=== PATIENT | female | born 2000 | race Caucasian/White ===

== ENCOUNTER 2019-06-03 10:40 | Emergency (ER) | payer OTHER ==
[~2019-06-03] VITALS: Ht 160 cm; Wt 62.1 kg
[2019-06-03] MEDS ORDERED: bcp (10:50)
[2019-06-03] MEDS ORDERED: NS 1,000 ML IV ONE (11:30)
[2019-06-03] MEDS ORDERED: KETOROLAC 30 MG/ML VIAL (J1885) IV ONE (11:30)
[2019-06-03 12:12] LABS: APPEARANCE, URINE HAZY (CLEAR); BACTERIA, URINE AUTO NEGATIVE (NEGATIVE); BILIRUBIN, URINE AUTO NEGATIVE (NEGATIVE); BLOOD, URINE BLOOD 1+ (NEGATIVE); COLOR, URINE YELLOW (YELLOW); GLUCOSE, URINE (UA) AUTO NEGATIVE (NEGATIVE); KETONE, URINE AUTO TRACE mg/dL (NEGATIVE); LEUKOCYTE ESTERASE, URINE AUTO TRACE (NEGATIVE); MUCUS, URINE SMALL (NEGATIVE); NITRITE, URINE AUTO NEGATIVE (NEGATIVE); PROTEIN, URINE AUTO NEGATIVE (NEGATIVE); RBC, URINE AUTO 11 /HPF (0-3); SPECIFIC GRAVITY URINE AUTO 1.018 (1.002-1.035); SQUAMOUS EPITHELIAL CELL UR AU 6 /HPF (0-6); UROBILINOGEN, URINE AUTO 0.2 mg/dL (0.0-2.0); WBC, URINE AUTO 13 /HPF (0-3)
[2019-06-03 12:35] LABS: BASO # 0.1 10^3/uL (0.0-0.2); BASO % 0.3 % (0.0-1.0); EOS % 0.1 % (0.0-3.0); HEMATOCRIT 38.2 % (36.0-47.0); HEMOGLOBIN 13.1 g/dl (12.0-15.5); LYMPH # 1.5 10^3/uL (1.5-5.0); LYMPH % 10.1 % (24.0-44.0); MEAN CORPUSCULAR HEMOGLOBIN 28.5 pg (27.0-33.0); MEAN CORPUSCULAR HGB CONC 34.3 g/dl (32.0-36.5); MEAN CORPUSCULAR VOLUME 83.2 fl (80.0-96.0); MONO # 1.5 10^3/uL (0.0-0.8); MONO % 10.1 % (0.0-5.0); NEUTROPHILS # 11.9 10^3/uL (1.5-8.5); NEUTROPHILS % 79.1 % (36.0-66.0); PLATELET COUNT, AUTOMATED 257 10^3/uL (150-450); RED BLOOD COUNT 4.59 10^6/uL (4.00-5.40)
[2019-06-03 12:55] LABS: ALBUMIN 3.4 GM/DL (3.2-5.2); ALT/SGPT 20 U/L (12-78); AMYLASE 62 U/L (25-115); BILIRUBIN,DIRECT 0.1 MG/DL (0.0-0.2); BILIRUBIN,TOTAL 0.4 MG/DL (0.2-1.0); BLOOD UREA NITROGEN 13 MG/DL (7-18); C REACTIVE PROTEIN QUANTITATIV 2.59 MG/DL (0.00-0.30); CALCIUM LEVEL 8.5 MG/DL (8.5-10.1); CARBON DIOXIDE LEVEL 23 MEQ/L (21-32); CHLORIDE LEVEL 107 MEQ/L (98-107); CREATININE FOR GFR 0.85 MG/DL (0.55-1.30); GLUCOSE, FASTING 83 MG/DL (70-100); POTASSIUM SERUM 3.5 MEQ/L (3.5-5.1); SODIUM LEVEL 138 MEQ/L (136-145); TOTAL PROTEIN 7.5 GM/DL (6.4-8.2)
[2019-06-03 13:01] LABS: INFLUENZA A AMPLIFICATION NEGATIVE (NEGATIVE); INFLUENZA B AMPLIFICATION NEGATIVE (NEGATIVE)
[2019-06-03] MEDS ORDERED: PROHANCE 279.3MG/ML 15ML VIAL (A9576) As Ordered ONE (13:25)
[2019-06-03] MEDS ORDERED: ISOVUE-370 76% 100ML VIAL (Q9967) As Ordered ONE (13:53)
--- NOTE | 2019-06-03 14:42 | REP ---
Clinical: Fever with lumbosacral tenderness. Technique: Pre and postcontrast MRI of the lumbosacral spine using 12 ml of ProHance gadolinium based intravenous contrast material. Sequencing includes sagittal T1, T2, STIR, postcontrast T1, and axial T1, T2, and postcontrast T1 images. Findings: The vertebral bodies are normal in contour, size, and signal intensity without evidence for vertebral body pathology. Alignment and lordosis is maintained. With the exception of the L5-S1 disc, the remainder of the visualized intervertebral discs are normal in height and signal intensity. No enhancing abnormalities are appreciated to suggest diskitis or further infectious/inflammatory process. The spinal canal is patent and the visualized cord and nerve roots are normal in appearance and signal intensity without enhancing abnormality. There is evidence for loss of T2 signal of the L5-L1 disc with decreased height and a small/moderate posterior broad-based disc protrusion which mildly encroaches on the bilateral lateral recesses and causes minimal effacement of the anterior margin of the thecal sac. The neural foramen demonstrate associated mild narrowing but without evidence for impingement of the exiting nerve roots. Impression: 1. Moderate spondylosis at the L5-S1 level as described above. 2. Otherwise normal pre and postcontrast lumbosacral spine MRI. Electronically Signed by Ascencion Reid MD 06/03/2019 02:33 P
[2019-06-03] MEDS ORDERED: IBUP80TA PO (14:44)
[2019-06-03] MEDS ORDERED: NORCO 5/325MG TABLET (BULK FOR ED) PO ONE (14:45)
[2019-06-03] MEDS ORDERED: SULF1TAB72 PO (14:49)
[2019-06-03 14:52] VITALS: BP 122/74
== END 2019-06-03 15:01 | disposition home or self-care (01) ==
LOC: M ED 10:40
DX: M47.896 Other spondylosis, lumbar region (principal); N39.0 Urinary tract infection, site not specified; M54.5 Low back pain; R50.9 Fever, unspecified; F17.210 Nicotine dependence, cigarettes, uncomplicated; Z88.0 Allergy status to penicillin
CPT/HCPCS: 36415; 72158; 80048; 80076; 81001; 82150; 83605; 84702; 85025; 86140; 87040; 87502; 96374; 99284; A9576; J1885

== ENCOUNTER → 2020-07-23 | Outpatient (CLI) | payer OTHER ==
[~2020-07-23] MED LIST: IBUP80TA PO; SULF400T14 PO; bcp
[2020-07-23 17:03] LABS: BLOOD UREA NITROGEN 12 MG/DL (7-18); CREATININE FOR GFR 0.87 MG/DL (0.55-1.30)
== END ==
LOC: M LAB 15:50
PROVIDERS: ATTEND Physical Medicine & Rehabilitation
DX: M54.16 Radiculopathy, lumbar region (principal)

== ENCOUNTER 2020-09-09 10:23 | Emergency (ER) | payer OTHER ==
[~2020-09-09] VITALS: Ht 149.9 cm; Wt 72.3 kg
[2020-09-09] MEDS ORDERED: MELO15TA28 PO (10:30)
[2020-09-09] MEDS ORDERED: GABA-843 PO (10:30)
[2020-09-09] MEDS ORDERED: NS 1,000 ML IV ONE (11:15)
[2020-09-09] MEDS ORDERED: ONDANSETRON 4MG/2ML VIAL IV ONE (11:15)
[2020-09-09] MEDS ORDERED: GI COCKTAIL 50ML BTL(HYOSCYAMINE/MAALOX/LIDOCAINE VISCOUS)(1:3:1) PO ONE (11:15)
[2020-09-09 11:18] LABS: BASO % 0.3 % (0.0-1.0); EOS % 0.1 % (0.0-3.0); HEMATOCRIT 43.4 % (36.0-47.0); HEMOGLOBIN 14.3 g/dl (12.0-15.5); LYMPH # 1.5 10^3/uL (1.5-5.0); LYMPH % 12.9 % (24.0-44.0); MEAN CORPUSCULAR HEMOGLOBIN 27.6 pg (27.0-33.0); MEAN CORPUSCULAR HGB CONC 32.9 g/dl (32.0-36.5); MEAN CORPUSCULAR VOLUME 83.8 fl (80.0-96.0); MONO # 0.7 10^3/uL (0.0-0.8); MONO % 5.5 % (0.0-5.0); NEUTROPHILS # 9.5 10^3/uL (1.5-8.5); NEUTROPHILS % 80.9 % (36.0-66.0); PLATELET COUNT, AUTOMATED 382 10^3/uL (150-450); RED BLOOD COUNT 5.18 10^6/uL (4.00-5.40); WHITE BLOOD COUNT 11.7 10^3/uL (4.0-10.0)
[2020-09-09 11:56] LABS: HCG, SERUM QUALITATIVE NEGATIVE (NEGATIVE)
[2020-09-09 12:00] LABS: ALBUMIN 4.4 GM/DL (3.2-5.2); ALT/SGPT 24 U/L (12-78); BILIRUBIN,DIRECT < 0.1 MG/DL (0.0-0.2); BILIRUBIN,TOTAL 0.3 MG/DL (0.2-1.0); BLOOD UREA NITROGEN 10 MG/DL (7-18); CALCIUM LEVEL 9.9 MG/DL (8.5-10.1); CARBON DIOXIDE LEVEL 27 MEQ/L (21-32); CHLORIDE LEVEL 107 MEQ/L (98-107); GLOMERULAR FILTRATION RATE > 60.0 (>60); GLUCOSE, FASTING 90 MG/DL (70-100); LIPASE 51 U/L (73-393); POTASSIUM SERUM 3.9 MEQ/L (3.5-5.1); SODIUM LEVEL 140 MEQ/L (136-145); TOTAL PROTEIN 8.2 GM/DL (6.4-8.2)
[2020-09-09] MEDS ORDERED: ISOVUE-370 76% 100ML VIAL As Ordered ONE (12:03)
[2020-09-09 12:34] LABS: CK-MB VALUE MASS < 1.0 NG/ML (<3.6); CPK CREATINE PHOSPHOKINASE 91 U/L (26-192); TROPONIN I < 0.02 NG/ML (< 0.10)
--- NOTE | 2020-09-09 12:38 | REP ---
INDICATION: abd pain with leukocytosis, n/v/d r/o infectious process COMPARISON: None. TECHNIQUE: CT Scan of the abdomen and pelvis was performed with intravenous administration of 100 cc of Isovue 370, and oral contrast. FINDINGS: Lung bases: No infiltrates seen. There is a small amount of pericardial fluid anteriorly and inferiorly on the right. Liver: Normal Gallbladder: Unremarkable. Spleen: Normal. Adrenals: Normal. Pancreas: Normal. Kidneys: Normal. Small and large bowel: Unremarkable. No obstruction. Free fluid: There is a small amount of free fluid in the pelvis. Abdominal aorta: No aneurysm or dissection. Adenopathy: None. Appendix: Not inflamed. Osseous structures: Unremarkable. Pelvis: No mass. There is a tiny umbilical hernia containing noninflamed fat. IMPRESSION: Small amount of pericardial fluid anteriorly and inferiorly on the right. Small amount of free fluid in the pelvis. No bowel abnormality. No bowel obstruction. Normal appendix. No pelvic mass. <Electronically signed by Tucker Villegas > 09/09/20 [id number]
--- NOTE | 2020-09-09 12:44 | REP ---
INDICATION: chest pain. COMPARISON: No comparison study. TECHNIQUE: Two views.. FINDINGS: The lungs are well inflated and free of infiltrate. The pleural angles are sharp. The heart size is normal. Pulmonary vasculature is not increased. No significant bony abnormality is seen. There is a mild pectus excavatum. IMPRESSION: Negative chest x-ray. <Electronically signed by Duncan Bagley > 09/09/20 [id number]
[2020-09-09] MEDS ORDERED: ONDA4TAB6 PO (14:23)
[2020-09-09] MEDS ORDERED: OMEP-218 PO (14:23)
[2020-09-09 14:38] VITALS: BP 121/88
--- NOTE | 2020-09-09 20:57 | ECGEPIP ---
[facility] - ED Test Date: 2020-09-09 Pat Name: DENISE GALARZA Department: Room: - Gender: Female Administrative Job Titles: BRUCE : 2000 Requested By: DANA MCCLOUD Order Number: [id number] Reading MD: Kate Bustillos Measurements Intervals [place] Rate: 72 P: 54 TX: 169 QRS: 79 QRSD: 90 T: 42 QT: 372 QTc: 408 Interpretive Statements SINUS RHYTHM WITH SINUS ARRHYTHMIA NO PRIOR Electronically Signed on 09-09-2020 20:57:14 EST by Kate Bustillos
== END 2020-09-09 14:40 | disposition home or self-care (01) ==
LOC: M ED 10:23
DX: K21.9 Gastro-esophageal reflux disease without esophagitis (principal); R11.2 Nausea with vomiting, unspecified; R07.9 Chest pain, unspecified; Z88.0 Allergy status to penicillin; Z79.899 Other long term (current) drug therapy
CPT/HCPCS: 71046; 74177; 80048; 80076; 81001; 82550; 82553; 83690; 84484; 84703; 85025; 93005; 96361; 96374; 99284; J2405; Q9967

== ENCOUNTER 2023-04-08 03:25 | Emergency (ER) | payer OTHER ==
[~2023-04-08] VITALS: Ht 160 cm; Wt 63.9 kg
[~2023-04-08 03:25] MED LIST changes: +GABA-282 PO; +MELO15TA28 PO; +OMEP-173 PO; +ONDA4TAB6 PO
[2023-04-08] MEDS ORDERED: MIDOTAB PO (03:30)
[2023-04-08] MEDS ORDERED: ONDANSETRON 4MG 2ML VIAL IV ONE (06:40)
[2023-04-08] MEDS ORDERED: NS 1,000 ML IV ONE (06:40)
[2023-04-08 07:04] LABS: BASO # 0.1 10^3/uL (0.0-0.2); BASO % 0.4 % (0.0-1.0); EOS # 0.2 10^3/uL (0.0-0.5); EOS % 1.4 % (0.0-3.0); HEMATOCRIT 40.7 % (36.0-47.0); LYMPH # 1.6 10^3/uL (1.5-5.0); LYMPH % 13.2 % (24.0-44.0); MEAN CORPUSCULAR HEMOGLOBIN 28.3 pg (27.0-33.0); MEAN CORPUSCULAR HGB CONC 34.4 g/dl (32.0-36.5); MEAN CORPUSCULAR VOLUME 82.2 fl (80.0-96.0); MONO # 1.1 10^3/uL (0.0-0.8); MONO % 8.5 % (2.0-8.0); NEUTROPHILS # 9.5 10^3/uL (1.5-8.5); NEUTROPHILS % 76.2 % (36.0-66.0); PLATELET COUNT, AUTOMATED 295 10^3/uL (150-450); RED BLOOD COUNT 4.95 10^6/uL (4.00-5.40); WHITE BLOOD COUNT 12.4 10^3/uL (4.0-10.0)
[2023-04-08 07:30] LABS: BILIRUBIN,DIRECT 0.2 MG/DL (<0.4); BILIRUBIN,TOTAL 0.5 MG/DL (0.3-1.2); TOTAL PROTEIN 7.6 G/DL (5.7-8.2)
[2023-04-08] MEDS ORDERED: KETOROLAC 30 MG/ML 1ML VIAL IV ONE (08:10)
[2023-04-08 09:25] LABS: RSV AMPLIFICATION NEGATIVE (NEGATIVE)
[2023-04-08] MEDS ORDERED: ONDA4TAB6 PO (09:43)
[2023-04-08] MEDS ORDERED: IBUP-1022 PO (09:43)
[2023-04-08 09:46] VITALS: BP 115/60; TEMP 97.6; O2SAT 99
== END 2023-04-08 10:04 | disposition home or self-care (01) ==
LOC: M ED 03:25
DX: I88.0 Nonspecific mesenteric lymphadenitis (principal); G62.9 Polyneuropathy, unspecified; F17.200 Nicotine dependence, unspecified, uncomplicated
CPT/HCPCS: 74176; 80047; 80076; 81001; 83690; 84702; 85025; 87086; 87507; 87631; 96374; 96375; 99284; J1885; J2405